=== PATIENT | female | born 1955 | race Caucasian/White ===

== ENCOUNTER 2021-02-20 17:39 | Emergency (ER) | payer OTHER, SELFPAY ==
[2021-02-20 18:45] VITALS: BP 171/78; PULSE 76; RESP 16; TEMP 36.8; O2SAT 97; BMI 24.3
--- NOTE | 2021-02-20 18:51 | ECG_ITS ---
Test Reason : CHEST PAIN Blood Pressure : / mmHG Vent. Rate : 073 BPM Atrial Rate : 073 BPM P-R Int : 170 ms QRS Dur : 098 ms QT Int : 400 ms P-R-T Axes : 008 076 024 degrees QTc Int : 440 ms Normal sinus rhythm Normal ECG No previous ECGs available Referred By: Generic ED Physician Electronically Signed By:HELDER MONGE MD
[2021-02-21 11:50] LABS: Glucose, Whole Blood 116 mg/dL (60-115)
== END 2021-02-20 19:41 | disposition left against medical advice (07) ==
PROVIDERS: Emergency Provider Emergency Medicine; PCP Internal Medicine
DX: R07.9 Chest pain, unspecified (principal)
CPT/HCPCS: 82947; 93005; 99283